=== PATIENT | male | born 1935 | race African-American/Black ===

== ENCOUNTER 2017-10-09 15:39 | Inpatient (IN) | payer MEDICARE, OTHER ==
[~2017-10-09] VITALS: Ht 170.2 cm; Wt 78.7 kg
[~2017-10-09 15:39] MED LIST: ASCO500 PO; ATOR40TA28 PO; B CO1CAP4 PO; CARV3 PO; CINA30 PO; CLON1 PO; DiphenhydrAMINE HCL 50 MG/ML VIAL IM ONE; LEVO100T4 PO; LIDOCAINE HCL/PF 1% 2 ML VIAL INJ ONE; MIDO10TA PO; PANT40TA25 PO; SEVE800 PO; [UNRECOGNIZED DRUG - CODE] TP
[2017-10-09] MEDS ORDERED: LATA2.5D2 OU (15:56)
[2017-10-09] MEDS ORDERED: TEMA15CA PO (15:56)
[2017-10-09] MEDS ORDERED: AMOX1TAB41 PO (15:56)
[2017-10-09] MEDS ORDERED: BRIM5DRO10 OU (15:56)
[2017-10-09] MEDS ORDERED: BUDE10.22 IH (15:56)
[2017-10-09] MEDS ORDERED: SODIUM CHLORIDE 0.9% 1,000 ML IV ONE (16:15)
[2017-10-09] MEDS ORDERED: ALBUTEROL SULFATE 5 MG/ML 20 ML NEB SOLN [BULK] NEB ONE (17:00)
[2017-10-09] MEDS ORDERED: IPRATROPIUM BROMIDE 0.5 MG/2.5 ML NEB SOLUTION NEB ONE (17:00)
[2017-10-09 17:32] LABS: EOSINOPHILS % (AUTO) 4.5 % (1.0-6.0); HEMATOCRIT 37.2 % (41-53); HEMOGLOBIN 12.4 g/dL (13.5-17.5); LYMPHOCYTES # (AUTO) 0.7 K/uL (1.0-4.8); LYMPHOCYTES % (AUTO) 8.5 % (22.0-44.0); MEAN CORPUSCULAR HEMOGLOBIN 30.1 pg (26.0-34.0); MEAN CORPUSCULAR HGB CONC 33.4 G/dL (31.0-37.0); MEAN CORPUSCULAR VOLUME 90 fL (80-100); MONOCYTES # (AUTO) 0.7 K/uL (0.1-1.0); MONOCYTES % (AUTO) 8.9 % (2.0-9.0); NEUTROPHILS # (AUTO) 6.1 K/uL (1.8-7.7); NEUTROPHILS % (AUTO) 78.1 % (40.0-70.0); PLATELET COUNT (AUTO) 147 K/uL (150-450); RED BLOOD CELL COUNT(AUTO) 4.12 MIL/uL (4.50-5.90); RED CELL DISTRIBUTION WIDTH 19.8 % (11.5-14.5); WHITE BLOOD COUNT (AUTO) 7.8 K/uL (4.5-11.0)
[2017-10-09 17:44] LABS: INR 1.1 (0.9-1.1); PROTHROMBIN TIME 11.6 SEC (9.4-11.6)
[2017-10-09 17:50] LABS: BILIRUBIN,TOTAL 0.8 mg/dL (0.1-1.0); CALCIUM, TOTAL 8.9 mg/dL (8.8-10.5); CREATININE 14.03 mg/dL (0.60-1.30); TOTAL PROTEIN, SERUM 7.2 g/dL (6.4-8.2)
[2017-10-09 17:54] LABS: POTASSIUM 6.8 mmol/L (3.5-5.1)
[2017-10-09 17:55] LABS: LACTIC ACID 1.4 mmol/L (0.4-2.0)
[2017-10-09] MEDS ORDERED: INSULIN REGULAR, HUMAN 100 UNITS/ML IVP ONE (18:00)
[2017-10-09] MEDS ORDERED: CALCIUM GLUCONATE 100 MG/ML 10 ML IVP ONE (18:00)
[2017-10-09] MEDS ORDERED: DEXTROSE 50%-WATER 25 GM/50 ML SYRINGE IVP ONE (18:00)
[2017-10-09 18:16] LABS: RBC MORPHOLOGY COMMENT ABNORMAL RBC MORPH
[2017-10-09] MEDS ORDERED: ONDANSETRON HCL 4 MG/2 ML VIAL IVP ONE (18:30)
[2017-10-09] MEDS ORDERED: MORPHINE SULFATE 4 MG/ML SYRINGE IVP ONE (18:30)
[2017-10-09 18:38] LABS: GLUCOSE,POINT OF CARE 90 MG/DL (70-110)
[2017-10-09] MEDS ORDERED: MetroNIDAZOLE 500 MG/NACL 100 ML IV ONE (20:00)
[2017-10-09] MEDS ORDERED: 0.9% SODIUM CHLORIDE 10 ML SYRINGE IVP PRN (20:15)
[2017-10-09] MEDS ORDERED: ZOLPIDEM TARTRATE 5 MG TABLET PO PRN (20:15)
[2017-10-09] MEDS ORDERED: ONDANSETRON HCL 4 MG/2 ML VIAL IVP PRN ×2 (20:15)
[2017-10-09] MEDS ORDERED: ACETAMINOPHEN 325 MG TABLET PO PRN (20:15)
[2017-10-09] MEDS ORDERED: MAGNESIUM HYDROXIDE SUSPENSION 30 ML UDCUP PO PRN (20:15)
[2017-10-09] MEDS ORDERED: BISACODYL 10 MG RECTAL RECTAL SUPPOSITORY PR PRN (20:15)
[2017-10-09] MEDS: TEMAZEPAM 15 MG CAPSULE PO SCH (21:00)
[2017-10-09] MEDS: HEPARIN SODIUM,PORCINE 5,000 UNITS/ML VIAL SQ SCH (21:00)
[2017-10-09] MEDS: ATORVASTATIN CALCIUM 40 MG TABLET PO SCH (21:00)
[2017-10-09] MEDS: CefTRIAXone 1 GM/DEXTROSE 50 ML IV SCH (21:48)
[2017-10-09 22:22] LABS: GLUCOSE,POINT OF CARE 106 MG/DL (70-110)
[2017-10-09] MEDS ORDERED: MANNITOL 25%-12.5 GM/50 ML VIAL IVP PRN (23:30)
[2017-10-09] MEDS ORDERED: LIDOCAINE HCL/PF 1% 2 ML VIAL ID PRN (23:30)
[2017-10-10 02:50] VITALS: BP 104/62
[2017-10-10] MEDS: LEVOTHYROXINE SODIUM 100 MCG TABLET PO SCH (05:53)
[2017-10-10 07:00] LABS: HEMATOCRIT 31.3 % (41-53); LYMPHOCYTES # (AUTO) 0.4 K/uL (1.0-4.8); LYMPHOCYTES % (AUTO) 5.2 % (22.0-44.0); MEAN CORPUSCULAR HEMOGLOBIN 31.6 pg (26.0-34.0); MEAN CORPUSCULAR VOLUME 90 fL (80-100); MONOCYTES # (AUTO) 1.1 K/uL (0.1-1.0); MONOCYTES % (AUTO) 13.3 % (2.0-9.0); NEUTROPHILS # (AUTO) 6.3 K/uL (1.8-7.7); NEUTROPHILS % (AUTO) 78.5 % (40.0-70.0); PLATELET COUNT (AUTO) 131 K/uL (150-450); RED BLOOD CELL COUNT(AUTO) 3.48 MIL/uL (4.50-5.90); RED CELL DISTRIBUTION WIDTH 19.4 % (11.5-14.5)
[2017-10-10 07:38] VITALS: BP 114/66
[2017-10-10 08:25] LABS: HEMOGLOBIN A1C 5.5 % (4.5-6.2)
[2017-10-10] MEDS: VITAMIN B COMP/VIT C/FOLIC ACID CAPSULE PO SCH (08:48)
[2017-10-10] MEDS: CARVEDILOL 3.125 MG TABLET PO SCH (08:48)
[2017-10-10] MEDS: PANTOPRAZOLE SODIUM 40 MG DR TABLET PO SCH (08:48)
[2017-10-10] MEDS: LATANOPROST 0.005% 2.5 ML OPHTHALMIC SOLUTION OU SCH (08:49)
[2017-10-10] MEDS: BRIMONIDINE TARTRATE 0.15% 5 ML OPHTHALMIC SOLUTION OU SCH (08:49)
[2017-10-10] MEDS: CINACALCET HCL 30 MG TABLET PO SCH (08:49)
[2017-10-10] MEDS: HEPARIN SODIUM,PORCINE 5,000 UNITS/ML VIAL SQ SCH ×2 (08:49→20:23)
[2017-10-10 08:52] LABS: AMYLASE 114 U/L (25-115); ANION GAP 9 mmol/L (8-16); CALCIUM, TOTAL 8.5 mg/dL (8.8-10.5); CARBON DIOXIDE 30 mmol/L (22-29); CHLORIDE 97 mmol/L (98-107); CHOL/HDL RATIO 1.3 (4.2-7.3); CREATINE KINASE MB 3.1 ng/mL (0-5); CREATINE KINASE, TOTAL 243 U/L (39-308); CREATININE 7.69 mg/dL (0.60-1.30); GLOMERULAR FILTR. RATE CALC 8 mL/min (>60); POTASSIUM 4.3 mmol/L (3.5-5.1); SODIUM SERUM 136 mmol/L (136-145); THYROID STIMULATING HORMONE 0.98 uIU/mL (0.36-3.74); UREA NITROGEN, BLOOD 29 mg/dL (7-18)
[2017-10-10 09:47] LABS: RBC MORPHOLOGY COMMENT ABNORMAL RBC MORPH
[2017-10-10 11:15] VITALS: BP 108/60
[2017-10-10 11:43] LABS: VITAMIN B12 LEVEL 1007 pg/mL (211-911)
[2017-10-10] MEDS ORDERED: SODIUM CHLORIDE 0.9% 250 ML IV ONE (13:54)
[2017-10-10] MEDS ORDERED: AZITHROMYCIN 250 MG in SODIUM CHLORIDE 0.9% 150 ML IV SCH (14:00)
[2017-10-10 15:29] VITALS: BP 101/50
[2017-10-10] MEDS: TEMAZEPAM 15 MG CAPSULE PO SCH (20:23)
[2017-10-10] MEDS: ATORVASTATIN CALCIUM 40 MG TABLET PO SCH (20:23)
[2017-10-10] MEDS: CefTRIAXone 1 GM/DEXTROSE 50 ML IV SCH (20:23)
[2017-10-11 00:03] VITALS: BP 118/72
[2017-10-11 04:25] VITALS: BP 115/78
[2017-10-11] MEDS: LEVOTHYROXINE SODIUM 100 MCG TABLET PO SCH (05:56)
[2017-10-11] MEDS ORDERED: SODIUM CHLORIDE 0.9% 2,000 ML IV ONE (06:40)
[2017-10-11] MEDS ORDERED: DiphenhydrAMINE HCL 50 MG/ML VIAL IVP PRN (07:00)
[2017-10-11] MEDS ORDERED: LIDOCAINE HCL/PF 1% 2 ML VIAL ID PRN (07:00)
[2017-10-11] MEDS ORDERED: MANNITOL 25%-12.5 GM/50 ML VIAL IVP PRN (07:00)
[2017-10-11 07:44] VITALS: BP 123/69
[2017-10-11 08:50] LABS: EOSINOPHILS % (AUTO) 7.8 % (1.0-6.0); HEMATOCRIT 33.1 % (41-53); LYMPHOCYTES # (AUTO) 0.6 K/uL (1.0-4.8); LYMPHOCYTES % (AUTO) 8.7 % (22.0-44.0); MEAN CORPUSCULAR HEMOGLOBIN 30.1 pg (26.0-34.0); MEAN CORPUSCULAR HGB CONC 33.3 G/dL (31.0-37.0); MEAN CORPUSCULAR VOLUME 90 fL (80-100); MONOCYTES # (AUTO) 0.7 K/uL (0.1-1.0); MONOCYTES % (AUTO) 9.3 % (2.0-9.0); NEUTROPHILS # (AUTO) 5.5 K/uL (1.8-7.7); NEUTROPHILS % (AUTO) 74.2 % (40.0-70.0); PLATELET COUNT (AUTO) 137 K/uL (150-450); RED BLOOD CELL COUNT(AUTO) 3.66 MIL/uL (4.50-5.90); RED CELL DISTRIBUTION WIDTH 19.4 % (11.5-14.5); WHITE BLOOD COUNT (AUTO) 7.4 K/uL (4.5-11.0)
[2017-10-11] MEDS: HEPARIN SODIUM,PORCINE 5,000 UNITS/ML VIAL SQ SCH ×2 (09:00→21:21)
[2017-10-11 09:22] LABS: ANION GAP 12 mmol/L (8-16); CALCIUM, TOTAL 8.8 mg/dL (8.8-10.5); CARBON DIOXIDE 27 mmol/L (22-29); CHLORIDE 99 mmol/L (98-107); CREATINE KINASE MB 2.7 ng/mL (0-5); CREATINE KINASE, TOTAL 485 U/L (39-308); CREATININE 6.89 mg/dL (0.60-1.30); GLOMERULAR FILTR. RATE CALC 9 mL/min (>60); POTASSIUM 3.9 mmol/L (3.5-5.1); SODIUM SERUM 138 mmol/L (136-145); UREA NITROGEN, BLOOD 29 mg/dL (7-18)
[2017-10-11 10:02] LABS: RBC MORPHOLOGY COMMENT ABNORMAL RBC MORPH
[2017-10-11] MEDS ORDERED: LIDOCAINE HCL/PF 1% 2 ML VIAL INJ ONE (12:00)
[2017-10-11] MEDS ORDERED: DiphenhydrAMINE HCL 50 MG/ML VIAL IVP ONE (12:00)
[2017-10-11] MEDS: VITAMIN B COMP/VIT C/FOLIC ACID CAPSULE PO SCH (13:01)
[2017-10-11] MEDS: CINACALCET HCL 30 MG TABLET PO SCH (13:02)
[2017-10-11] MEDS: BRIMONIDINE TARTRATE 0.15% 5 ML OPHTHALMIC SOLUTION OU SCH (13:02)
[2017-10-11] MEDS: DOXYCYCLINE 100 MG CAPSULE PO SCH ×2 (13:02→21:21)
[2017-10-11] MEDS: PANTOPRAZOLE SODIUM 40 MG DR TABLET PO SCH (13:03)
[2017-10-11] MEDS: CARVEDILOL 3.125 MG TABLET PO SCH (13:03)
[2017-10-11] MEDS: LATANOPROST 0.005% 2.5 ML OPHTHALMIC SOLUTION OU SCH (13:03)
[2017-10-11 15:39] VITALS: BP 104/60
[2017-10-11] MEDS ORDERED: DiphenhydrAMINE HCL 25 MG CAPSULE PO ONE (17:30)
[2017-10-11 20:03] VITALS: BP 98/74
[2017-10-11] MEDS: CefTRIAXone 1 GM/DEXTROSE 50 ML IV SCH (21:21)
[2017-10-11] MEDS: ATORVASTATIN CALCIUM 40 MG TABLET PO SCH (21:21)
[2017-10-11] MEDS ORDERED: SODIUM CHLORIDE 0.9% 250 ML IV ONE (21:39)
[2017-10-11 22:44] LABS: INFLUENZA TYPE B NEGATIVE FOR TYPE B (NEGATIVE)
[2017-10-12 00:01] VITALS: BP 101/60
[2017-10-12] MEDS: TEMAZEPAM 15 MG CAPSULE PO SCH ×2 (01:37→21:55)
[2017-10-12 05:06] VITALS: BP 94/37
[2017-10-12] MEDS: LEVOTHYROXINE SODIUM 100 MCG TABLET PO SCH (05:30)
[2017-10-12 08:01] VITALS: BP 113/59
[2017-10-12] MEDS: BRIMONIDINE TARTRATE 0.15% 5 ML OPHTHALMIC SOLUTION OU SCH (08:55)
[2017-10-12] MEDS: LATANOPROST 0.005% 2.5 ML OPHTHALMIC SOLUTION OU SCH (08:55)
[2017-10-12] MEDS: HEPARIN SODIUM,PORCINE 5,000 UNITS/ML VIAL SQ SCH ×2 (08:55→21:55)
[2017-10-12] MEDS: CINACALCET HCL 30 MG TABLET PO SCH (08:56)
[2017-10-12] MEDS: PANTOPRAZOLE SODIUM 40 MG DR TABLET PO SCH (08:56)
[2017-10-12] MEDS: DOXYCYCLINE 100 MG CAPSULE PO SCH ×2 (08:56→21:55)
[2017-10-12] MEDS: VITAMIN B COMP/VIT C/FOLIC ACID CAPSULE PO SCH (08:56)
[2017-10-12] MEDS: CARVEDILOL 3.125 MG TABLET PO SCH (08:56)
[2017-10-12 09:02] LABS: ANION GAP 10 mmol/L (8-16); CALCIUM, TOTAL 8.5 mg/dL (8.8-10.5); CARBON DIOXIDE 28 mmol/L (22-29); CHLORIDE 99 mmol/L (98-107); CREATININE 7.14 mg/dL (0.60-1.30); GLOMERULAR FILTR. RATE CALC 9 mL/min (>60); POTASSIUM 4.2 mmol/L (3.5-5.1); SODIUM SERUM 137 mmol/L (136-145); UREA NITROGEN, BLOOD 25 mg/dL (7-18)
[2017-10-12 09:18] LABS: BASOPHILS % (AUTO) 0.1 % (0.0-2.0); EOSINOPHILS # (AUTO) 0.68 K/uL (0.00-0.70); HEMATOCRIT 33.1 % (41-53); HEMOGLOBIN 10.5 g/dL (13.5-17.5); LYMPHOCYTES # (AUTO) 0.4 K/uL (1.0-4.8); LYMPHOCYTES % (AUTO) 6.2 % (22.0-44.0); MEAN CORPUSCULAR HEMOGLOBIN 29.1 pg (26.0-34.0); MEAN CORPUSCULAR HGB CONC 31.8 G/dL (31.0-37.0); MEAN CORPUSCULAR VOLUME 92 fL (80-100); MONOCYTES # (AUTO) 0.8 K/uL (0.1-1.0); MONOCYTES % (AUTO) 13.8 % (2.0-9.0); NEUTROPHILS % (AUTO) 68.4 % (40.0-70.0); PLATELET COUNT (AUTO) 150 K/uL (150-450); RED BLOOD CELL COUNT(AUTO) 3.62 MIL/uL (4.50-5.90); RED CELL DISTRIBUTION WIDTH 19.1 % (11.5-14.5); WHITE BLOOD COUNT (AUTO) 5.9 K/uL (4.5-11.0)
[2017-10-12 09:47] LABS: CREATINE KINASE, TOTAL 252 U/L (39-308)
[2017-10-12 10:16] LABS: RBC MORPHOLOGY COMMENT ABNORMAL RBC MORPH
[2017-10-12 12:06] VITALS: BP 95/57
[2017-10-12 15:53] VITALS: BP 97/59
[2017-10-12 19:50] VITALS: BP 97/63
[2017-10-12] MEDS: ATORVASTATIN CALCIUM 40 MG TABLET PO SCH (21:55)
[2017-10-12] MEDS: CefTRIAXone 1 GM/DEXTROSE 50 ML IV SCH (21:56)
[2017-10-13 00:16] VITALS: BP 97/58
[2017-10-13 04:44] VITALS: BP 107/59
[2017-10-13] MEDS: LEVOTHYROXINE SODIUM 100 MCG TABLET PO SCH (06:19)
[2017-10-13 07:27] VITALS: BP 100/46
[2017-10-13] MEDS: CINACALCET HCL 30 MG TABLET PO SCH (08:17)
[2017-10-13] MEDS: PANTOPRAZOLE SODIUM 40 MG DR TABLET PO SCH (08:18)
[2017-10-13] MEDS: BRIMONIDINE TARTRATE 0.15% 5 ML OPHTHALMIC SOLUTION OU SCH (08:18)
[2017-10-13] MEDS: DOXYCYCLINE 100 MG CAPSULE PO SCH ×2 (08:18→21:39)
[2017-10-13] MEDS: LATANOPROST 0.005% 2.5 ML OPHTHALMIC SOLUTION OU SCH (08:18)
[2017-10-13] MEDS: HEPARIN SODIUM,PORCINE 5,000 UNITS/ML VIAL SQ SCH ×2 (08:18→21:40)
[2017-10-13] MEDS: CARVEDILOL 3.125 MG TABLET PO SCH (09:00)
[2017-10-13] MEDS: GABAPENTIN 100 MG CAPSULE PO SCH (12:16)
[2017-10-13] MEDS ORDERED: LIDOCAINE HCL/PF 1% 2 ML VIAL ID PRN (13:30)
[2017-10-13] MEDS ORDERED: DiphenhydrAMINE HCL 50 MG/ML VIAL IVP PRN (13:30)
[2017-10-13] MEDS ORDERED: MANNITOL 25%-12.5 GM/50 ML VIAL IVP PRN (13:30)
[2017-10-13] MEDS ORDERED: SODIUM CHLORIDE 0.9% 2,000 ML IV ONE (15:07)
[2017-10-13] MEDS: BENZONATATE 100 MG CAPSULE PO SCH ×2 (15:08→21:40)
[2017-10-13] MEDS: VITAMIN B COMP/VIT C/FOLIC ACID CAPSULE PO SCH (16:05)
[2017-10-13 19:17] VITALS: BP 97/51
[2017-10-13] MEDS: OXYGEN THERAPY IH SCH (20:00)
[2017-10-13] MEDS: TEMAZEPAM 15 MG CAPSULE PO SCH (21:39)
[2017-10-13] MEDS: ATORVASTATIN CALCIUM 40 MG TABLET PO SCH (21:39)
[2017-10-13] MEDS: CefTRIAXone 1 GM/DEXTROSE 50 ML IV SCH (21:40)
[2017-10-13] MEDS: GuaiFENesin/D-METHORPHAN/PHENYLEPH 5 ML LIQUID ORAL.SYG PO PRN (21:48)
[2017-10-13 23:07] VITALS: BP 95/48
[2017-10-14] VITALS (9 sets, daily range): BP systolic 74–102; BP diastolic 41–65
[2017-10-14 05:22] LABS: HEPATITIS Bs ANTIGEN SCREEN P Negative (Negative); HEPATITIS C AB SCREEN <0.1 s/co ratio (0.0-0.9)
[2017-10-14] MEDS: LEVOTHYROXINE SODIUM 100 MCG TABLET PO SCH (06:19)
[2017-10-14] MEDS ORDERED: DiphenhydrAMINE HCL 50 MG/ML VIAL IVP ONE (07:25)
[2017-10-14] MEDS ORDERED: LIDOCAINE HCL/PF 1% 2 ML VIAL INJ ONE (07:25)
[2017-10-14] MEDS: CARVEDILOL 3.125 MG TABLET PO SCH (07:57)
[2017-10-14] MEDS: CINACALCET HCL 30 MG TABLET PO SCH (08:02)
[2017-10-14] MEDS: OXYGEN THERAPY IH SCH ×2 (08:02→20:28)
[2017-10-14] MEDS: GABAPENTIN 100 MG CAPSULE PO SCH (08:04)
[2017-10-14] MEDS: BENZONATATE 100 MG CAPSULE PO SCH ×3 (08:04→21:14)
[2017-10-14] MEDS: VITAMIN B COMP/VIT C/FOLIC ACID CAPSULE PO SCH (08:04)
[2017-10-14] MEDS: PANTOPRAZOLE SODIUM 40 MG DR TABLET PO SCH (08:04)
[2017-10-14] MEDS: HEPARIN SODIUM,PORCINE 5,000 UNITS/ML VIAL SQ SCH ×2 (08:05→21:07)
[2017-10-14] MEDS: BRIMONIDINE TARTRATE 0.15% 5 ML OPHTHALMIC SOLUTION OU SCH (10:52)
[2017-10-14] MEDS: LATANOPROST 0.005% 2.5 ML OPHTHALMIC SOLUTION OU SCH (10:52)
[2017-10-14] MEDS: ALBUMIN HUMAN 25%-12.5GM/50ML 50 ML IV SCH ×2 (16:55→22:51)
[2017-10-14] MEDS ORDERED: AmLODIPine BESYLATE 5 MG TABLET PO SCH (17:00)
[2017-10-14] MEDS: CefTRIAXone 1 GM/DEXTROSE 50 ML IV SCH (21:05)
[2017-10-14] MEDS ORDERED: ATORVASTATIN CALCIUM 20 MG TABLET ONE (21:12)
[2017-10-14] MEDS ORDERED: TEMAZEPAM 7.5 MG CAPSULE ONE (21:13)
[2017-10-14] MEDS: ATORVASTATIN CALCIUM 40 MG TABLET PO SCH (21:15)
[2017-10-14] MEDS: TEMAZEPAM 7.5 MG CAPSULE PO SCH (21:19)
[2017-10-14] MEDS ORDERED: SODIUM CHLORIDE 0.9% 250 ML IV ONE (21:25)
[2017-10-15] VITALS: BP 83/53
[2017-10-15 04:00] VITALS: BP 133/42
[2017-10-15 05:42] LABS: EOSINOPHILS % (AUTO) 15.1 % (1.0-6.0); HEMATOCRIT 31.3 % (41-53); HEMOGLOBIN 10.5 g/dL (13.5-17.5); LYMPHOCYTES # (AUTO) 0.6 K/uL (1.0-4.8); LYMPHOCYTES % (AUTO) 12.7 % (22.0-44.0); MEAN CORPUSCULAR HEMOGLOBIN 30.3 pg (26.0-34.0); MEAN CORPUSCULAR HGB CONC 33.7 G/dL (31.0-37.0); MEAN CORPUSCULAR VOLUME 90 fL (80-100); MONOCYTES # (AUTO) 0.7 K/uL (0.1-1.0); MONOCYTES % (AUTO) 13.3 % (2.0-9.0); NEUTROPHILS # (AUTO) 2.9 K/uL (1.8-7.7); NEUTROPHILS % (AUTO) 58.9 % (40.0-70.0); PLATELET COUNT (AUTO) 196 K/uL (150-450); RED BLOOD CELL COUNT(AUTO) 3.47 MIL/uL (4.50-5.90); RED CELL DISTRIBUTION WIDTH 19.5 % (11.5-14.5); WHITE BLOOD COUNT (AUTO) 4.9 K/uL (4.5-11.0)
[2017-10-15] MEDS: LEVOTHYROXINE SODIUM 100 MCG TABLET PO SCH (06:01)
[2017-10-15] MEDS: ALBUMIN HUMAN 25%-12.5GM/50ML 50 ML IV SCH ×4 (06:01→23:06)
[2017-10-15 06:13] LABS: ALBUMIN 3.6 g/dL (3.4-5.0); BILIRUBIN,TOTAL 0.5 mg/dL (0.1-1.0); CALCIUM, TOTAL 8.5 mg/dL (8.8-10.5); CREATININE 9.62 mg/dL (0.60-1.30); MAGNESIUM 1.8 mg/dL (1.80-2.40); PHOSPHORUS 4.8 mg/dL (2.5-4.9); TOTAL PROTEIN, SERUM 6.6 g/dL (6.4-8.2)
[2017-10-15 08:00] VITALS: BP 110/64
[2017-10-15 08:11] LABS: PROCALCITONIN (PCT) 1.68 ng/mL (<0.50)
[2017-10-15] MEDS: OXYGEN THERAPY IH SCH ×2 (08:12→19:24)
[2017-10-15] MEDS: GuaiFENesin/D-METHORPHAN/PHENYLEPH 5 ML LIQUID ORAL.SYG PO PRN ×3 (08:13→20:56)
[2017-10-15] MEDS: GABAPENTIN 100 MG CAPSULE PO SCH (08:15)
[2017-10-15] MEDS: CINACALCET HCL 30 MG TABLET PO SCH (08:15)
[2017-10-15] MEDS: PANTOPRAZOLE SODIUM 40 MG DR TABLET PO SCH (08:16)
[2017-10-15] MEDS: VITAMIN B COMP/VIT C/FOLIC ACID CAPSULE PO SCH (08:16)
[2017-10-15] MEDS: HEPARIN SODIUM,PORCINE 5,000 UNITS/ML VIAL SQ SCH ×2 (08:16→20:55)
[2017-10-15] MEDS: BRIMONIDINE TARTRATE 0.15% 5 ML OPHTHALMIC SOLUTION OU SCH (08:17)
[2017-10-15] MEDS: LATANOPROST 0.005% 2.5 ML OPHTHALMIC SOLUTION OU SCH (08:17)
[2017-10-15] MEDS: CARVEDILOL 3.125 MG TABLET PO SCH (08:18)
[2017-10-15] MEDS: BENZONATATE 100 MG CAPSULE PO SCH ×3 (08:22→20:55)
[2017-10-15] MEDS: METOPROLOL TARTRATE 25 MG TABLET PO SCH ×2 (09:15→21:00)
[2017-10-15] MEDS: ALBUTEROL SULFATE 2.5 MG/0.5 ML NEB SOLUTION NEB PRN (10:49)
[2017-10-15] MEDS: IPRATROPIUM BROMIDE 0.5 MG/2.5 ML NEB SOLUTION NEB PRN (10:50)
[2017-10-15 12:00] VITALS: BP 91/56
[2017-10-15 16:00] VITALS: BP 95/59
[2017-10-15 17:33] LABS: EOSINOPHILS % (AUTO) 14.2 % (1.0-6.0); HEMATOCRIT 31.3 % (41-53); HEMOGLOBIN 10.4 g/dL (13.5-17.5); LYMPHOCYTES # (AUTO) 0.5 K/uL (1.0-4.8); LYMPHOCYTES % (AUTO) 11.7 % (22.0-44.0); MEAN CORPUSCULAR HEMOGLOBIN 29.9 pg (26.0-34.0); MEAN CORPUSCULAR HGB CONC 33.3 G/dL (31.0-37.0); MEAN CORPUSCULAR VOLUME 90 fL (80-100); MONOCYTES # (AUTO) 0.5 K/uL (0.1-1.0); MONOCYTES % (AUTO) 12.5 % (2.0-9.0); NEUTROPHILS # (AUTO) 2.5 K/uL (1.8-7.7); NEUTROPHILS % (AUTO) 61.6 % (40.0-70.0); PLATELET COUNT (AUTO) 198 K/uL (150-450); RED BLOOD CELL COUNT(AUTO) 3.47 MIL/uL (4.50-5.90); RED CELL DISTRIBUTION WIDTH 19.2 % (11.5-14.5)
[2017-10-15 17:42] LABS: RBC MORPHOLOGY COMMENT ABNORMAL RBC MORPH
[2017-10-15 20:00] VITALS: BP 101/65
[2017-10-15] MEDS: CefTRIAXone 1 GM/DEXTROSE 50 ML IV SCH (20:48)
[2017-10-15] MEDS: TEMAZEPAM 7.5 MG CAPSULE PO SCH (20:55)
[2017-10-15] MEDS: ATORVASTATIN CALCIUM 40 MG TABLET PO SCH (20:56)
[2017-10-15] MEDS ORDERED: SODIUM CHLORIDE 0.9% 250 ML IV ONE (23:13)
[2017-10-16] VITALS (7 sets, daily range): BP systolic 83–150; BP diastolic 55–80
[2017-10-16] MEDS ORDERED: SODIUM CHLORIDE 0.9% 100 ML ONE (04:28)
[2017-10-16] MEDS: GuaiFENesin/D-METHORPHAN/PHENYLEPH 5 ML LIQUID ORAL.SYG PO PRN (04:49)
[2017-10-16] MEDS: ALBUMIN HUMAN 25%-12.5GM/50ML 50 ML IV SCH ×3 (04:50→15:43)
[2017-10-16 05:53] LABS: BASOPHILS # (AUTO) 0.01 K/uL (0.00-0.20); BASOPHILS % (AUTO) 0.2 % (0.0-2.0); EOSINOPHILS # (AUTO) 0.76 K/uL (0.00-0.70); EOSINOPHILS % (AUTO) 15.05 % (1.0-6.0); HEMATOCRIT 30.3 % (41-53); LYMPHOCYTES # (AUTO) 0.4 K/uL (1.0-4.8); LYMPHOCYTES % (AUTO) 8.2 % (22.0-44.0); MEAN CORPUSCULAR HEMOGLOBIN 29.9 pg (26.0-34.0); MEAN CORPUSCULAR VOLUME 91 fL (80-100); MONOCYTES # (AUTO) 0.5 K/uL (0.1-1.0); MONOCYTES % (AUTO) 9.3 % (2.0-9.0); NEUTROPHILS # (AUTO) 3.4 K/uL (1.8-7.7); NEUTROPHILS % (AUTO) 67.3 % (40.0-70.0); PLATELET COUNT (AUTO) 190 K/uL (150-450); RED BLOOD CELL COUNT(AUTO) 3.34 MIL/uL (4.50-5.90); RED CELL DISTRIBUTION WIDTH 19.4 % (11.5-14.5)
[2017-10-16] MEDS: LEVOTHYROXINE SODIUM 100 MCG TABLET PO SCH (05:53)
[2017-10-16 05:54] LABS: ALBUMIN 3.9 g/dL (3.4-5.0); BILIRUBIN,TOTAL 0.6 mg/dL (0.1-1.0); CALCIUM, TOTAL 8.5 mg/dL (8.8-10.5); CREATININE 11.31 mg/dL (0.60-1.30); MAGNESIUM 1.8 mg/dL (1.80-2.40); PHOSPHORUS 4.8 mg/dL (2.5-4.9); POTASSIUM 4.8 mmol/L (3.5-5.1); TOTAL PROTEIN, SERUM 6.8 g/dL (6.4-8.2)
[2017-10-16] MEDS: CINACALCET HCL 30 MG TABLET PO SCH (08:00)
[2017-10-16 08:55] LABS: RBC MORPHOLOGY COMMENT ABNORMAL RBC MORPH
[2017-10-16] MEDS: BENZONATATE 100 MG CAPSULE PO SCH ×3 (09:00→21:48)
[2017-10-16] MEDS: VITAMIN B COMP/VIT C/FOLIC ACID CAPSULE PO SCH (09:00)
[2017-10-16] MEDS: METOPROLOL TARTRATE 25 MG TABLET PO SCH (09:00)
[2017-10-16] MEDS: GABAPENTIN 100 MG CAPSULE PO SCH (09:00)
[2017-10-16] MEDS: PANTOPRAZOLE SODIUM 40 MG DR TABLET PO SCH (09:00)
[2017-10-16] MEDS: HEPARIN SODIUM,PORCINE 5,000 UNITS/ML VIAL SQ SCH ×2 (09:00→21:48)
[2017-10-16] MEDS ORDERED: SODIUM CHLORIDE 0.9% 2,000 ML IV ONE (09:29)
[2017-10-16] MEDS ORDERED: LIDOCAINE HCL/PF 1% 2 ML VIAL ID PRN (13:15)
[2017-10-16] MEDS ORDERED: DiphenhydrAMINE HCL 50 MG/ML VIAL IVP PRN (13:15)
[2017-10-16] MEDS: OXYGEN THERAPY IH SCH ×2 (14:13→21:44)
[2017-10-16] MEDS: LATANOPROST 0.005% 2.5 ML OPHTHALMIC SOLUTION OU SCH (14:13)
[2017-10-16] MEDS: BRIMONIDINE TARTRATE 0.15% 5 ML OPHTHALMIC SOLUTION OU SCH (14:13)
[2017-10-16] MEDS ORDERED: HYDROCODONE/ACETAMINOPHEN 5-325 MG TABLET PO PRN ×2 (15:45)
[2017-10-16] MEDS ORDERED: LIDOCAINE HCL/PF 1% 2 ML VIAL IARTIC ONE (17:14)
[2017-10-16] MEDS ORDERED: DiphenhydrAMINE HCL 50 MG/ML VIAL IM ONE (17:14)
[2017-10-16] MEDS ORDERED: SODIUM CHLORIDE 0.9% 250 ML IV ONE (21:33)
[2017-10-16] MEDS: CefTRIAXone 1 GM/DEXTROSE 50 ML IV SCH (21:44)
[2017-10-16] MEDS: TEMAZEPAM 7.5 MG CAPSULE PO SCH (21:47)
[2017-10-16] MEDS: ATORVASTATIN CALCIUM 40 MG TABLET PO SCH (21:47)
[2017-10-17] MEDS: ALBUMIN HUMAN 25%-12.5GM/50ML 50 ML IV SCH ×4 (00:16→16:40)
[2017-10-17] MEDS: METOPROLOL TARTRATE 25 MG TABLET PO SCH ×2 (00:27→08:42)
[2017-10-17 00:50] VITALS: BP 101/56
[2017-10-17 06:03] VITALS: BP 91/52
[2017-10-17] MEDS: LEVOTHYROXINE SODIUM 100 MCG TABLET PO SCH (06:25)
[2017-10-17] MEDS: OXYGEN THERAPY IH SCH (08:00)
[2017-10-17] MEDS: VITAMIN B COMP/VIT C/FOLIC ACID CAPSULE PO SCH (08:42)
[2017-10-17] MEDS: HEPARIN SODIUM,PORCINE 5,000 UNITS/ML VIAL SQ SCH (08:42)
[2017-10-17] MEDS: BENZONATATE 100 MG CAPSULE PO SCH ×2 (08:42→16:40)
[2017-10-17] MEDS: GABAPENTIN 100 MG CAPSULE PO SCH (08:43)
[2017-10-17] MEDS: CINACALCET HCL 30 MG TABLET PO SCH (08:43)
[2017-10-17] MEDS: LATANOPROST 0.005% 2.5 ML OPHTHALMIC SOLUTION OU SCH (08:44)
[2017-10-17] MEDS: BRIMONIDINE TARTRATE 0.15% 5 ML OPHTHALMIC SOLUTION OU SCH (08:44)
[2017-10-17] MEDS: PANTOPRAZOLE SODIUM 40 MG DR TABLET PO SCH (08:45)
[2017-10-17] MEDS: IPRATROPIUM BROMIDE 0.5 MG/2.5 ML NEB SOLUTION NEB PRN (10:30)
[2017-10-17] MEDS: ALBUTEROL SULFATE 2.5 MG/0.5 ML NEB SOLUTION NEB PRN (10:30)
[2017-10-17 11:23] VITALS: BP 107/60
[2017-10-17 15:49] VITALS: BP 108/66
[2017-10-17] MEDS ORDERED: ALBU2550 IV (18:13)
[2017-10-17] MEDS ORDERED: BENZ-51 PO (18:15)
[2017-10-17] MEDS ORDERED: CEFX1I IM (18:15)
[2017-10-17] MEDS ORDERED: GABA-529 PO (18:16)
[2017-10-17] MEDS ORDERED: A20IH1 IH (18:18)
[2017-10-17] MEDS ORDERED: FOLI1CAP2 PO (18:18)
[2017-10-17] MEDS ORDERED: BISA10S PR (18:19)
[2017-10-17] MEDS ORDERED: GUAIFCF5L PO (18:20)
[2017-10-17] MEDS ORDERED: ONDA4 PO (18:21)
[2017-10-17] MEDS ORDERED: IPRA3AMP4 NEB (18:21)
[2017-10-17] MEDS ORDERED: METO25 PO (18:24)
[2017-10-17] MEDS ORDERED: HEPA500041 SQ (18:24)
[2017-10-20 17:16] LABS: COCCIDIOIDES BY CF(UCDAVIS) Negative; COCCIDIOIDES IMMUNODIF-UCDAVIS Negative; COCCIDIOIDES INTERP.(UCDAVIS) Comment:
[2017-12-01] MEDS ORDERED: PANT40TA25 PO (04:56)
[2017-12-01] MEDS ORDERED: RISP1 PO (04:56)
[2017-12-01] MEDS ORDERED: SEVEC800 PO (04:56)
[2017-12-01] MEDS ORDERED: LACT1CAP62 PO (04:56)
[2017-12-01] MEDS ORDERED: TEMA15CA PO (04:56)
[2017-12-01] MEDS ORDERED: MELA3TAB66 PO (04:56)
[2017-12-01] MEDS ORDERED: CARV3 PO (04:56)
[2017-12-01] MEDS ORDERED: MELA5TAB3 PO (10:44)
[2017-12-01] MEDS ORDERED: HEPA500018 SQ (10:44)
[2017-12-08] MEDS ORDERED: LEVO250 PO (13:18)
[2017-12-08] MEDS ORDERED: ACET-2247 PO (13:20)
[2017-12-08] MEDS ORDERED: FOLI1CAP2 PO (13:20)
[2017-12-08] MEDS ORDERED: [UNRECOGNIZED DRUG - CODE] IV (13:22)
[2017-12-08] MEDS ORDERED: IPRNEB IH (13:23)
[2017-12-08] MEDS ORDERED: ONDA4 PO (13:24)
[2017-12-08] MEDS ORDERED: ZOLP5 PO (13:25)
[2017-12-08] MEDS ORDERED: VANC1FRO IV (13:26)
== END 2017-10-17 19:10 | DRG 871 ==
LOC: EMS 15:40 → 5S 20:33 → ICU 10-14 16:30 → 5S 10-16 08:50
PROVIDERS: ADMIT Internal Medicine Geriatric Medicine; ATTEND Internal Medicine Geriatric Medicine
PROC: 5A1D70Z Performance of Urinary Filtration, Intermittent, Less than 6 Hours Per Day (ICD-10-PCS; principal; 2017-10-09)
PROC: 5A1D70Z Performance of Urinary Filtration, Intermittent, Less than 6 Hours Per Day (ICD-10-PCS; 2017-10-11)
PROC: 5A1D70Z Performance of Urinary Filtration, Intermittent, Less than 6 Hours Per Day (ICD-10-PCS; 2017-10-13)
PROC: 5A1D70Z Performance of Urinary Filtration, Intermittent, Less than 6 Hours Per Day (ICD-10-PCS; 2017-10-16)
DX: A41.9 Sepsis, unspecified organism (principal); N18.6 End stage renal disease; I13.2 Hypertensive heart and chronic kidney disease with heart failure and with stage 5 chronic kidney disease, or end stage renal disease; J15.6 Pneumonia due to other Gram-negative bacteria; K85.90 Acute pancreatitis without necrosis or infection, unspecified; D69.6 Thrombocytopenia, unspecified; E11.22 Type 2 diabetes mellitus with diabetic chronic kidney disease; D71 Functional disorders of polymorphonuclear neutrophils; E11.51 Type 2 diabetes mellitus with diabetic peripheral angiopathy without gangrene; I42.9 Cardiomyopathy, unspecified; J44.0 Chronic obstructive pulmonary disease with (acute) lower respiratory infection; I50.20 Unspecified systolic (congestive) heart failure; G47.00 Insomnia, unspecified; E87.5 Hyperkalemia; K62.89 Other specified diseases of anus and rectum; B19.20 Unspecified viral hepatitis C without hepatic coma; D63.8 Anemia in other chronic diseases classified elsewhere; E03.9 Hypothyroidism, unspecified; E78.5 Hyperlipidemia, unspecified; H40.9 Unspecified glaucoma; I25.10 Atherosclerotic heart disease of native coronary artery without angina pectoris; I35.0 Nonrheumatic aortic (valve) stenosis; K21.9 Gastro-esophageal reflux disease without esophagitis; Z78.9 Other specified health status; Z87.891 Personal history of nicotine dependence; Z95.810 Presence of automatic (implantable) cardiac defibrillator; Z95.1 Presence of aortocoronary bypass graft; Z99.2 Dependence on renal dialysis; Z99.81 Dependence on supplemental oxygen; Z88.2 Allergy status to sulfonamides; Z88.8 Allergy status to other drugs, medicaments and biological substances; Z88.6 Allergy status to analgesic agent; Z91.041 Radiographic dye allergy status; Z82.49 Family history of ischemic heart disease and other diseases of the circulatory system; Z83.3 Family history of diabetes mellitus
CPT/HCPCS: 71250; 74176; 80074; 82105; 82306; 82607; 82746; 82962; 83036; 83605; 83735; 84100; 84132; 84145; 84439; 84443; 86480; 86738; 87015; 87040; 87070; 87081; 87101; 87149; 87153; 87185; 87186; 87205; 87252; 87340; 87804; 90935; 93005; 93306; 94640; 94644; 96365; 96366; 96375; 99285; J0456; J0610; J0696; J1200; J1644; J1815; J2270; J2405; J3490; J7030; J7050; P9047

== ENCOUNTER 2020-12-05 07:54 | Inpatient (IN) | payer MEDICARE, OTHER ==
[~2020-12-05] VITALS: Ht 167.6 cm; Wt 90.9 kg
[~2020-12-05 07:54] MED LIST changes: +A20IH1 IH; +ACET-2865 PO; -ASCO500 PO; -ATOR40TA28 PO; -B CO1CAP4 PO; +BISA10SU11 PR; -CINA30 PO; -CLON1 PO; -DiphenhydrAMINE HCL 50 MG/ML VIAL IM ONE; +FOLI1CAP2 PO; +IPRNEB IH; +LATA2.5D14 OU; +LEVO250T75 PO; -LIDOCAINE HCL/PF 1% 2 ML VIAL INJ ONE; +MELA5TAB3 PO; -MIDO10TA PO; +ONDA-104 PO; +PANT-31 PO; -PANT40TA25 PO; -SEVE800 PO; +TEMA15CA PO; +VANC1FRO IV; +ZOLP-280 PO; +[UNRECOGNIZED DRUG - CODE] IV
[2020-12-05] MEDS ORDERED: GLUCAGON,HUMAN RECOMBINANT 1 MG VIAL ONE (08:20)
[2020-12-05] MEDS ORDERED: GLUCAGON,HUMAN RECOMBINANT 1 MG VIAL IM ONE (08:30)
[2020-12-05] MEDS ORDERED: DEXTROSE 50%-WATER 25 GM/50 ML SYRINGE IVP ONE ×3 (08:42→14:00)
[2020-12-05] MEDS ORDERED: SODIUM CHLORIDE 77 MEQ in DEXTROSE 10%-WATER 1,000 ML IV ONE (08:45)
[2020-12-05 09:06] LABS: BASOPHILS % (AUTO) 0.1 % (0.0-2.0); EOSINOPHILS % (AUTO) 4.1 % (1.0-6.0); HEMATOCRIT 25.7 % (41-53); LYMPHOCYTES # (AUTO) 0.3 K/uL (1.0-4.8); LYMPHOCYTES % (AUTO) 3.7 % (22.0-44.0); MEAN CORPUSCULAR HEMOGLOBIN 32.6 pg (26.0-34.0); MEAN CORPUSCULAR HGB CONC 31.1 G/dL (31.0-37.0); MEAN CORPUSCULAR VOLUME 105 fL (80-100); MONOCYTES # (AUTO) 0.8 K/uL (0.1-1.0); MONOCYTES % (AUTO) 9.6 % (2.0-9.0); NEUTROPHILS % (AUTO) 82.5 % (40.0-70.0); PLATELET COUNT (AUTO) 136 K/uL (150-450); RED BLOOD CELL COUNT(AUTO) 2.45 MIL/uL (4.50-5.90); RED CELL DISTRIBUTION WIDTH 24.7 % (11.5-14.5)
[2020-12-05 09:15] LABS: INR 1.1 (0.9-1.1); PROTHROMBIN TIME 11.7 SEC (9.4-11.6)
[2020-12-05 09:16] LABS: CALCIUM, TOTAL 7.4 mg/dL (8.8-10.5); CREATININE 5.97 mg/dL (0.60-1.30); POTASSIUM 4.2 mmol/L (3.5-5.1)
[2020-12-05 09:24] LABS: TROPONIN I 0.1 ng/mL (0.00-0.05)
[2020-12-05] MEDS ORDERED: MIDO5TAB29 PO (09:28)
[2020-12-05] MEDS ORDERED: HYDR5TAB14 PO (09:28)
[2020-12-05] MEDS ORDERED: PREDAOS OS (09:28)
[2020-12-05] MEDS ORDERED: COSO10OS OU (09:28)
[2020-12-05] MEDS ORDERED: ATRO2DRO OU (09:28)
[2020-12-05] MEDS ORDERED: CLON-595 PO (09:28)
[2020-12-05] MEDS ORDERED: CALC0.25 PO (09:28)
[2020-12-05] MEDS ORDERED: BRIM155OS OU (09:28)
[2020-12-05] MEDS ORDERED: ERYT3.5O8 OD (09:28)
[2020-12-05] MEDS ORDERED: ATOR20TA86 PO (09:28)
[2020-12-05] MEDS ORDERED: SEVE800T17 PO (09:28)
[2020-12-05] MEDS ORDERED: MIRT-89 PO (09:28)
[2020-12-05] MEDS ORDERED: LACT1CAP70 PO (09:28)
[2020-12-05] MEDS ORDERED: FAMOTIDINE PO (09:28)
[2020-12-05] MEDS ORDERED: SIME80 PO (09:28)
[2020-12-05] MEDS ORDERED: ASPI-728 PO (09:28)
[2020-12-05] MEDS ORDERED: CLOP75TA60 PO (09:28)
[2020-12-05] MEDS ORDERED: CINA30 PO (09:28)
[2020-12-05] MEDS ORDERED: AMOX-426 PO (09:28)
[2020-12-05 09:31] LABS: ALBUMIN 2.3 g/dL (3.4-5.0); BILIRUBIN,TOTAL 1.1 mg/dL (0.1-1.0); MAGNESIUM 1.9 mg/dL (1.80-2.40); THYROID STIMULATING HORMONE 6.69 uIU/mL (0.36-3.74); TOTAL PROTEIN, SERUM 5.4 g/dL (6.4-8.2)
[2020-12-05 09:33] LABS: LACTIC ACID 1.5 mmol/L (0.4-2.0)
[2020-12-05] MEDS ORDERED: DEXAMETHASONE SOD PHOS 4 MG/ML VIAL IVP ONE (10:00)
[2020-12-05] MEDS ORDERED: VANCOMYCIN HCL 1 GM/D5% WATER 200 ML IV ONE ×2 (10:00→18:00)
[2020-12-05] MEDS ORDERED: PIPERACILLIN/TAZO 3.375 GM/D5W 50 ML IV ONE (10:00)
[2020-12-05 10:09] LABS: ABG A-A DIFF O2 28.1 mmHg (10-20.0); ABG BASE EXCESS -0.8 mmol/L (-2.0-3.0); ABG CARBOXYHEMOGLOBIN 1.2 % (0.0-1.5); ABG HCO3 23.5 mmol/L (22.0-26.0); ABG METHEMOGLOBIN 0.1 % (0.0-1.5); ABG OXYGEN CONTENT 13.1 mL/dL (15.0-23.0); ABG OXYGEN SATURATION 98.5 % (95.0-98.0); ABG OXYHEMOGLOBIN 97.2 % (94.0-100.0); ABG PCO2 51 mmHg (35-45); ABG PH 7.313 (7.35-7.450); ABG TOTAL HEMOGLOBIN 9.4 G/dL (12.0-18.0); PO2, ARTERIAL BG 127.5 mmHg (71.0-79.0); SITE, BLOOD GAS LFT BRACHIAL; SOURCE, BLOOD GAS ARTERIAL; TEMPERATURE, FAHRENHEIT, BG 94.9 FAHREN (96.0-98.6)
[2020-12-05 10:10] LABS: O2 DEVICE,BLOOD GAS CANNULA (ROOM AIR)
[2020-12-05] MEDS ORDERED: INSULIN LISPRO 100 UNITS/ML SQ PRN (10:45)
[2020-12-05] MEDS ORDERED: BISACODYL 10 MG RECTAL RECTAL SUPPOSITORY PR PRN (10:45)
[2020-12-05] MEDS ORDERED: ACETAMINOPHEN 325 MG TABLET PO PRN (10:45)
[2020-12-05 10:59] LABS: GLUCOSE,POINT OF CARE < 10 MG/DL (70-110)
[2020-12-05 10:59] LABS: GLUCOSE,POINT OF CARE < 10 MG/DL (70-110)
[2020-12-05 10:59] LABS: GLUCOSE,POINT OF CARE 94 MG/DL (70-110)
[2020-12-05 10:59] LABS: GLUCOSE,POINT OF CARE 134 MG/DL (70-110)
[2020-12-05 10:59] LABS: GLUCOSE,POINT OF CARE 145 MG/DL (70-110)
[2020-12-05] MEDS ORDERED: RINGERS SOLUTION,LACTATED 1,000 ML IV ONE (11:00)
[2020-12-05] MEDS ORDERED: VANCOMYCIN HCL 1 GM/D5% WATER 200 ML IV PRN (11:00)
[2020-12-05 11:02] LABS: COVID AG,FIA SOURCE NASOPHARYNGEAL
[2020-12-05] MEDS ORDERED: VANCOMYCIN HCL 1.5 GM in DEXTROSE 5%-WATER 250 ML IV ONE (12:00)
[2020-12-05] MEDS: DEXTROSE 50%-WATER 25 GM/50 ML SYRINGE IVP PRN ×4 (12:19→20:56)
[2020-12-05] MEDS ORDERED: DEXTROSE 10%-WATER 1,000 ML IV SCH (12:30)
[2020-12-05] MEDS ORDERED: FAMO40OR5 PO (12:41)
[2020-12-05] MEDS ORDERED: LEVO75 PO (12:41)
[2020-12-05] MEDS ORDERED: CARV6 PO (12:41)
[2020-12-05] MEDS ORDERED: FOLI0.8T2 PO (12:41)
[2020-12-05 12:53] LABS: GLUCOSE,POINT OF CARE 77 MG/DL (70-110)
[2020-12-05 12:53] LABS: GLUCOSE,POINT OF CARE 70 MG/DL (70-110)
[2020-12-05 12:53] LABS: GLUCOSE,POINT OF CARE 59 MG/DL (70-110)
[2020-12-05] MEDS: PHENYLEPHRINE 200 MG/D5%-WATER 250 ML IV PRN (13:10)
[2020-12-05] MEDS ORDERED: GLUCAGON,HUMAN RECOMBINANT 1 MG VIAL IVP ONE (14:00)
[2020-12-05] MEDS ORDERED: HYDROCORTISONE SOD SUCC 100 MG/2 ML VIAL IVP ONE (14:00)
[2020-12-05 15:12] LABS: GLUCOSE,POINT OF CARE 42 MG/DL (70-110)
[2020-12-05 15:12] LABS: GLUCOSE,POINT OF CARE 98 MG/DL (70-110)
[2020-12-05 15:58] LABS: ABG A-A DIFF O2 59.6 mmHg (10-20.0); ABG BASE EXCESS -2.8 mmol/L (-2.0-3.0); ABG CARBOXYHEMOGLOBIN 1.9 % (0.0-1.5); ABG HCO3 22.1 mmol/L (22.0-26.0); ABG METHEMOGLOBIN 0.3 % (0.0-1.5); ABG OXYGEN CONTENT 13.3 mL/dL (15.0-23.0); ABG OXYGEN SATURATION 97.1 % (95.0-98.0); ABG PCO2 48 mmHg (35-45); ABG PH 7.311 (7.35-7.450); ABG TOTAL HEMOGLOBIN 9.8 G/dL (12.0-18.0); PO2, ARTERIAL BG 98.5 mmHg (71.0-79.0); SOURCE, BLOOD GAS ARTERIAL; TEMPERATURE, FAHRENHEIT, BG 98.6 FAHREN (96.0-98.6)
[2020-12-05 15:59] LABS: SITE, BLOOD GAS LFT RADIAL
[2020-12-05 16:00] LABS: INSPIRATORY TIME, BG 0.9 SEC; O2 DEVICE,BLOOD GAS BIPAP (ROOM AIR); SPONTANEOUS VT, BG 533 ml
[2020-12-05 17:38] LABS: CALCIUM, TOTAL 7.9 mg/dL (8.8-10.5); CREATININE 6.49 mg/dL (0.60-1.30); POTASSIUM 3.9 mmol/L (3.5-5.1)
[2020-12-05 18:41] LABS: GLUCOSE,POINT OF CARE 189 MG/DL (70-110)
[2020-12-05 18:41] LABS: GLUCOSE,POINT OF CARE 43 MG/DL (70-110)
[2020-12-05 18:41] LABS: GLUCOSE,POINT OF CARE 196 MG/DL (70-110)
[2020-12-05 18:41] LABS: GLUCOSE,POINT OF CARE 202 MG/DL (70-110)
[2020-12-05 18:41] LABS: GLUCOSE,POINT OF CARE 108 MG/DL (70-110)
[2020-12-05 19:29] LABS: GLUCOSE,POINT OF CARE 119 MG/DL (70-110)
[2020-12-05 21:30] LABS: GLUCOSE,POINT OF CARE 59 MG/DL (70-110)
[2020-12-05] MEDS: HEPARIN SODIUM,PORCINE 5,000 UNITS/ML VIAL SQ SCH (21:43)
[2020-12-05 21:52] LABS: ABG A-A DIFF O2 85.7 mmHg (10-20.0); ABG BASE EXCESS 0.6 mmol/L (-2.0-3.0); ABG CARBOXYHEMOGLOBIN 1.8 % (0.0-1.5); ABG HCO3 24.5 mmol/L (22.0-26.0); ABG METHEMOGLOBIN 0.1 % (0.0-1.5); ABG OXYGEN CONTENT 14.6 mL/dL (15.0-23.0); ABG OXYGEN SATURATION 93.4 % (95.0-98.0); ABG OXYHEMOGLOBIN 91.6 % (94.0-100.0); ABG PCO2 51 mmHg (35-45); ABG PH 7.332 (7.35-7.450); ABG TOTAL HEMOGLOBIN 11.3 G/dL (12.0-18.0); SOURCE, BLOOD GAS ARTERIAL; TEMPERATURE, FAHRENHEIT, BG 98.6 FAHREN (96.0-98.6)
[2020-12-05 21:54] LABS: SITE, BLOOD GAS LFT RADIAL
[2020-12-05 23:11] LABS: GLUCOSE,POINT OF CARE 78 MG/DL (70-110)
[2020-12-05] MEDS ORDERED: DEXTROSE 5%-0.45% SODIUM CHL 1,000 ML IV ONE (23:15)
[2020-12-06] VITALS (9 sets, daily range): BP systolic 98–150; BP diastolic 51–73
[2020-12-06] MEDS: HYDROCORTISONE SOD SUCC 100 MG/2 ML VIAL IVP SCH ×3 (00:46→16:12)
[2020-12-06] MEDS: PIPERACILLIN SODIUM/TAZOBACTAM 2.25 GM in DEXTROSE 5%-WATER 50 ML IV SCH ×4 (01:45→23:45)
[2020-12-06 06:33] LABS: BASOPHILS % (AUTO) 1.1 % (0.0-2.0); EOSINOPHILS % (AUTO) 0.1 % (1.0-6.0); HEMATOCRIT 29.3 % (41-53); HEMOGLOBIN 9.3 g/dL (13.5-17.5); LYMPHOCYTES # (AUTO) 1.7 K/uL (1.0-4.8); MEAN CORPUSCULAR HEMOGLOBIN 32.9 pg (26.0-34.0); MEAN CORPUSCULAR HGB CONC 31.8 G/dL (31.0-37.0); MEAN CORPUSCULAR VOLUME 104 fL (80-100); MONOCYTES # (AUTO) 0.4 K/uL (0.1-1.0); MONOCYTES % (AUTO) 3.3 % (2.0-9.0); NEUTROPHILS # (AUTO) 9.9 K/uL (1.8-7.7); NEUTROPHILS % (AUTO) 81.5 % (40.0-70.0); PLATELET COUNT (AUTO) 175 K/uL (150-450); RED BLOOD CELL COUNT(AUTO) 2.83 MIL/uL (4.50-5.90); RED CELL DISTRIBUTION WIDTH 25.4 % (11.5-14.5)
[2020-12-06 06:59] LABS: PHOSPHORUS 3.6 mg/dL (2.5-4.9)
[2020-12-06 07:09] LABS: CALCIUM, TOTAL 7.9 mg/dL (8.8-10.5); CREATININE 6.78 mg/dL (0.60-1.30); VANCOMYCIN,RANDOM 28.6 mcg/mL (25.0-50.0)
[2020-12-06] MEDS: DEXTROSE 50%-WATER 25 GM/50 ML SYRINGE IVP PRN ×3 (07:34→09:38)
[2020-12-06] MEDS ORDERED: DEXTROSE 5%-WATER 1,000 ML IV ONE (08:15)
[2020-12-06] MEDS: ASPIRIN 81 MG CHEWABLE TABLET PO SCH (08:51)
[2020-12-06] MEDS: HEPARIN SODIUM,PORCINE 5,000 UNITS/ML VIAL SQ SCH ×2 (08:51→20:11)
[2020-12-06] MEDS: DEXTROSE 10%-WATER 1,000 ML IV SCH (08:52)
[2020-12-06] MEDS: FAMOTIDINE 20 MG TABLET PO SCH (08:52)
[2020-12-06 11:07] LABS: GLUCOSE,POINT OF CARE 89 MG/DL (70-110)
[2020-12-06 11:07] LABS: GLUCOSE,POINT OF CARE 64 MG/DL (70-110)
[2020-12-06 11:08] LABS: GLUCOSE,POINT OF CARE 246 MG/DL (70-110)
[2020-12-06 11:08] LABS: GLUCOSE,POINT OF CARE 70 MG/DL (70-110)
[2020-12-06 12:26] LABS: GLUCOSE,POINT OF CARE 116 MG/DL (70-110)
[2020-12-06 17:01] LABS: GLUCOSE,POINT OF CARE 104 MG/DL (70-110)
[2020-12-06 17:01] LABS: GLUCOSE,POINT OF CARE 109 MG/DL (70-110)
[2020-12-06 17:01] LABS: GLUCOSE,POINT OF CARE 90 MG/DL (70-110)
[2020-12-06 17:44] LABS: GLUCOSE,POINT OF CARE 118 MG/DL (70-110)
[2020-12-06 19:55] LABS: ABG A-A DIFF O2 92.1 mmHg (10-20.0); ABG BASE EXCESS 3.7 mmol/L (-2.0-3.0); ABG CARBOXYHEMOGLOBIN 1.4 % (0.0-1.5); ABG HCO3 27.6 mmol/L (22.0-26.0); ABG METHEMOGLOBIN 0.3 % (0.0-1.5); ABG OXYGEN CONTENT 13.5 mL/dL (15.0-23.0); ABG OXYGEN SATURATION 97.8 % (95.0-98.0); ABG OXYHEMOGLOBIN 96.1 % (94.0-100.0); ABG PCO2 39 mmHg (35-45); ABG PH 7.466 (7.35-7.450); ABG TOTAL HEMOGLOBIN 9.9 G/dL (12.0-18.0); PO2, ARTERIAL BG 90.5 mmHg (71.0-79.0); SOURCE, BLOOD GAS ARTERIAL; TEMPERATURE, FAHRENHEIT, BG 98.6 FAHREN (96.0-98.6)
[2020-12-06 19:56] LABS: O2 DEVICE,BLOOD GAS CANNULA (ROOM AIR); SITE, BLOOD GAS LA
[2020-12-06 20:03] LABS: GLUCOSE,POINT OF CARE 138 MG/DL (70-110)
[2020-12-07] VITALS: BP 125/64
[2020-12-07] MEDS: HYDROCORTISONE SOD SUCC 100 MG/2 ML VIAL IVP SCH ×4 (00:44→23:27)
[2020-12-07 03:24] LABS: GLUCOSE,POINT OF CARE 108 MG/DL (70-110)
[2020-12-07 04:00] VITALS: BP 113/57
[2020-12-07 08:00] VITALS: BP 121/72
[2020-12-07] MEDS: ASPIRIN 81 MG CHEWABLE TABLET PO SCH (08:38)
[2020-12-07] MEDS: HEPARIN SODIUM,PORCINE 5,000 UNITS/ML VIAL SQ SCH ×2 (08:38→21:48)
[2020-12-07] MEDS: FAMOTIDINE 20 MG TABLET PO SCH (08:38)
[2020-12-07] MEDS: PIPERACILLIN SODIUM/TAZOBACTAM 2.25 GM in DEXTROSE 5%-WATER 50 ML IV SCH ×3 (08:38→23:13)
[2020-12-07] MEDS: DEXTROSE 10%-WATER 1,000 ML IV SCH (08:39)
[2020-12-07] MEDS ORDERED: EPOETIN ALFA 10,000 UNITS/ML VIAL SQ SCH (09:00)
[2020-12-07] MEDS: PHENYLEPHRINE 200 MG/D5%-WATER 250 ML IV PRN (09:31)
[2020-12-07 09:50] LABS: GLUCOSE,POINT OF CARE 133 MG/DL (70-110)
[2020-12-07 12:00] VITALS: BP 130/67
[2020-12-07 13:21] LABS: BASOPHILS % (AUTO) 0.2 % (0.0-2.0); EOSINOPHILS % (AUTO) 0 % (1.0-6.0); HEMATOCRIT 25.6 % (41-53); HEMOGLOBIN 8.2 g/dL (13.5-17.5); LYMPHOCYTES # (AUTO) 0.7 K/uL (1.0-4.8); MEAN CORPUSCULAR HEMOGLOBIN 33.1 pg (26.0-34.0); MEAN CORPUSCULAR HGB CONC 32.1 G/dL (31.0-37.0); MEAN CORPUSCULAR VOLUME 103 fL (80-100); MONOCYTES # (AUTO) 0.6 K/uL (0.1-1.0); MONOCYTES % (AUTO) 5.5 % (2.0-9.0); NEUTROPHILS # (AUTO) 9.1 K/uL (1.8-7.7); PLATELET COUNT (AUTO) 171 K/uL (150-450); RED BLOOD CELL COUNT(AUTO) 2.47 MIL/uL (4.50-5.90); RED CELL DISTRIBUTION WIDTH 25.4 % (11.5-14.5)
[2020-12-07 13:22] LABS: NEUTROPHILS % (AUTO) 87.3 % (40.0-70.0)
[2020-12-07 13:39] LABS: ALBUMIN 2.4 g/dL (3.4-5.0); CALCIUM, TOTAL 8.1 mg/dL (8.8-10.5); CREATININE 4.62 mg/dL (0.60-1.30); MAGNESIUM 1.8 mg/dL (1.80-2.40); PHOSPHORUS 3.6 mg/dL (2.5-4.9); POTASSIUM 4.3 mmol/L (3.5-5.1); TOTAL PROTEIN, SERUM 5.9 g/dL (6.4-8.2); VANCOMYCIN,RANDOM 21.4 mcg/mL (25.0-50.0)
[2020-12-07 13:42] LABS: % IRON SATURATION 46.2 % (30-44)
[2020-12-07 14:46] LABS: GLUCOSE,POINT OF CARE 131 MG/DL (70-110)
[2020-12-07 14:46] LABS: GLUCOSE,POINT OF CARE 175 MG/DL (70-110)
[2020-12-07 14:46] LABS: GLUCOSE,POINT OF CARE 84 MG/DL (70-110)
[2020-12-07 14:46] LABS: GLUCOSE,POINT OF CARE 79 MG/DL (70-110)
[2020-12-07 14:46] LABS: GLUCOSE,POINT OF CARE 121 MG/DL (70-110)
[2020-12-07 16:00] VITALS: BP 121/68
[2020-12-07 16:51] LABS: ABG A-A DIFF O2 39.4 mmHg (10-20.0); ABG BASE EXCESS 2.1 mmol/L (-2.0-3.0); ABG CARBOXYHEMOGLOBIN 1.3 % (0.0-1.5); ABG HCO3 26.4 mmol/L (22.0-26.0); ABG METHEMOGLOBIN 0.3 % (0.0-1.5); ABG OXYGEN CONTENT 12.1 mL/dL (15.0-23.0); ABG OXYGEN SATURATION 98.7 % (95.0-98.0); ABG OXYHEMOGLOBIN 97.1 % (94.0-100.0); ABG PCO2 36 mmHg (35-45); ABG TOTAL HEMOGLOBIN 8.7 G/dL (12.0-18.0); O2 DEVICE,BLOOD GAS CANNULA (ROOM AIR); PO2, ARTERIAL BG 117.5 mmHg (71.0-79.0); SITE, BLOOD GAS LFT RADIAL; SOURCE, BLOOD GAS ARTERIAL; TEMPERATURE, FAHRENHEIT, BG 98.6 FAHREN (96.0-98.6)
[2020-12-07 18:26] LABS: GLUCOMETER DEV NAME(LOC) AHU.; GLUCOSE,POINT OF CARE 113 MG/DL (70-110)
[2020-12-07 18:34] LABS: GLUCOSE,POINT OF CARE 160 MG/DL (70-110)
[2020-12-07 20:00] VITALS: BP 112/61
[2020-12-07 20:47] LABS: GLUCOMETER DEV NAME(LOC) AHU.; GLUCOSE,POINT OF CARE 52 MG/DL (70-110)
[2020-12-08] VITALS: BP 100/66
[2020-12-08 04:00] VITALS: BP 138/73
[2020-12-08 06:37] LABS: CREATININE 5.26 mg/dL (0.60-1.30); POTASSIUM 4.5 mmol/L (3.5-5.1); VANCOMYCIN,RANDOM 22.2 mcg/mL (25.0-50.0)
[2020-12-08] MEDS: PHENYLEPHRINE 200 MG/D5%-WATER 250 ML IV PRN ×2 (06:42→18:13)
[2020-12-08 08:00] VITALS: BP 80/56
[2020-12-08] MEDS: DEXTROSE 10%-WATER 1,000 ML IV SCH (08:45)
[2020-12-08] MEDS: HEPARIN SODIUM,PORCINE 5,000 UNITS/ML VIAL SQ SCH ×2 (09:00→21:56)
[2020-12-08] MEDS ORDERED: VITAMIN B COMP/VIT C/FOLIC ACID CAPSULE PO SCH (09:00)
[2020-12-08] MEDS: PIPERACILLIN SODIUM/TAZOBACTAM 2.25 GM in DEXTROSE 5%-WATER 50 ML IV SCH ×2 (10:04→16:06)
[2020-12-08] MEDS: FAMOTIDINE 20 MG TABLET PO SCH (10:04)
[2020-12-08] MEDS: ASPIRIN 81 MG CHEWABLE TABLET PO SCH (10:04)
[2020-12-08] MEDS: HYDROCORTISONE SOD SUCC 100 MG/2 ML VIAL IVP SCH ×2 (10:32→16:06)
[2020-12-08 10:37] LABS: GLUCOMETER DEV NAME(LOC) AHU.; GLUCOSE,POINT OF CARE 148 MG/DL (70-110)
[2020-12-08] MEDS ORDERED: SODIUM CHLORIDE 0.9% 1,000 ML ONE (11:34)
[2020-12-08 12:00] VITALS: BP 98/30
[2020-12-08] MEDS ORDERED: NOREPINEPHRINE 4 MG/D5%-WATER 250 ML IV ONE (13:35)
[2020-12-08] MEDS: NOREPINEPHRINE 4 MG/D5%-WATER 250 ML IV PRN ×2 (13:37→19:50)
[2020-12-08 14:16] LABS: GLUCOMETER DEV NAME(LOC) AHU.; GLUCOSE,POINT OF CARE 145 MG/DL (70-110)
[2020-12-08 16:00] VITALS: BP 107/37
[2020-12-08 17:46] LABS: GLUCOMETER DEV NAME(LOC) AHU.; GLUCOSE,POINT OF CARE 131 MG/DL (70-110)
[2020-12-08 20:00] VITALS: BP 89/42
[2020-12-08] MEDS ORDERED: VASOPRESSIN 40 UNITS in DEXTROSE 5%-WATER 98 ML IV PRN (20:30)
[2020-12-08] MEDS ORDERED: SODIUM CHLORIDE 0.9% 1,000 ML IV ONE (23:00)
[2020-12-09] VITALS: BP 50/20
[2020-12-09] MEDS: PIPERACILLIN SODIUM/TAZOBACTAM 2.25 GM in DEXTROSE 5%-WATER 50 ML IV SCH ×2
[2020-12-09] MEDS: HYDROCORTISONE SOD SUCC 100 MG/2 ML VIAL IVP SCH
[2020-12-09] MEDS ORDERED: VANCOMYCIN HCL 1 GM/D5% WATER 200 ML IV ONE (05:00)
[2020-12-09] MEDS ORDERED: ALBUMIN HUMAN 25%-12.5GM/50ML IV BOTTLE ONE (17:18)
[2020-12-09] MEDS ORDERED: HEPARIN SODIUM,PORCINE 1,000 UNITS/ML VIAL ONE (17:18)
[2020-12-09] MEDS ORDERED: EPINEPHrine 1:10,000 [1 MG/10 ML] SYRINGE ONE (17:19)
[2020-12-09] MEDS ORDERED: BRIMONIDINE TARTRATE 0.15% 5 ML OPHTHALMIC SOLUTION ONE (17:19)
[2020-12-09] MEDS ORDERED: LIDOCAINE/PF 1% 2 ML VIAL ONE (17:19)
[2020-12-09] MEDS ORDERED: PrednisoLONE ACETATE 1% 5 ML OPHTHALMIC SUSPENSION ONE (17:19)
[2020-12-09] MEDS ORDERED: HYALURONATE SOD/CHONDROITIN SOD 0.5 ML VIAL IO ONE (17:19)
[2020-12-09] MEDS ORDERED: POVIDONE-IODINE 10% 15 ML SOLUTION UD ONE (17:19)
[2020-12-09] MEDS ORDERED: HYALURONATE SODIUM 12 MG/ML 0.8 ML SYRINGE IO ONE (17:19)
[2020-12-09] MEDS ORDERED: TETRACAINE HCL/PF 0.5% 4 ML OPHTHALMIC SOLUTION ONE (17:19)
== END 2020-12-09 00:36 | DRG 871 ==
LOC: EMS 08:00 → UNDOADMIN 11:54 → 5N 11:54 → AHU 12-06 09:23 → ICUN 12-07 16:52
PROVIDERS: ADMIT Internal Medicine; ATTEND Internal Medicine
PROC: 5A09357 Assistance with Respiratory Ventilation, Less than 24 Consecutive Hours, Continuous Positive Airway Pressure (ICD-10-PCS; 2020-12-06)
PROC: 5A1D70Z Performance of Urinary Filtration, Intermittent, Less than 6 Hours Per Day (ICD-10-PCS; 2020-12-06)
PROC: 05HY33Z Insertion of Infusion Device into Upper Vein, Percutaneous Approach (ICD-10-PCS; principal; 2020-12-08)
PROC: B54MZZA Ultrasonography of Right Upper Extremity Veins, Guidance (ICD-10-PCS; 2020-12-08)
DX: A41.9 Sepsis, unspecified organism (principal); J96.01 Acute respiratory failure with hypoxia; E43 Unspecified severe protein-calorie malnutrition; N18.6 End stage renal disease; I50.21 Acute systolic (congestive) heart failure; G92 Toxic encephalopathy; J69.0 Pneumonitis due to inhalation of food and vomit; E87.2 Acidosis; E11.22 Type 2 diabetes mellitus with diabetic chronic kidney disease; E11.649 Type 2 diabetes mellitus with hypoglycemia without coma; Z66 Do not resuscitate; Z99.2 Dependence on renal dialysis; E11.51 Type 2 diabetes mellitus with diabetic peripheral angiopathy without gangrene; G47.00 Insomnia, unspecified; K21.9 Gastro-esophageal reflux disease without esophagitis; E78.00 Pure hypercholesterolemia, unspecified; I25.5 Ischemic cardiomyopathy; E03.9 Hypothyroidism, unspecified; E78.5 Hyperlipidemia, unspecified; D63.8 Anemia in other chronic diseases classified elsewhere; I25.10 Atherosclerotic heart disease of native coronary artery without angina pectoris; Z82.49 Family history of ischemic heart disease and other diseases of the circulatory system; I46.9 Cardiac arrest, cause unspecified; Z79.4 Long term (current) use of insulin; I95.3 Hypotension of hemodialysis; Z68.32 Body mass index [BMI] 32.0-32.9, adult; Z88.5 Allergy status to narcotic agent; Z88.8 Allergy status to other drugs, medicaments and biological substances; Z88.1 Allergy status to other antibiotic agents; Z91.041 Radiographic dye allergy status; Z99.81 Dependence on supplemental oxygen; Z98.84 Bariatric surgery status; Z95.810 Presence of automatic (implantable) cardiac defibrillator; Z95.1 Presence of aortocoronary bypass graft; Z83.3 Family history of diabetes mellitus
CPT/HCPCS: 36245; 36569; 36600; 70450; 76937; 82805; 82948; 83540; 83550; 83605; 83735; 84100; 84443; 87040; 87340; 87426; 93005; 93306; 94660; 99291; G0378; J0171; J0885; J1100; J1610; J1644; J1720; J2370; J2543; J3370; J3490; J7030; J7060; J7120; J7131; P9047; 36415-L1; 36415-TC; 71045-TC; 80202-TC; 82803-TC; U0003